=== PATIENT | male | born 1980 | race Hispanic/Latino ===

== ENCOUNTER 2020-07-08 15:28 | Emergency (ER) | payer OTHER ==
[~2020-07-08] VITALS: Ht 172.7 cm; Wt 79.4 kg
[2020-07-08] MEDS ORDERED: SODIUM CHLORIDE 0.9% INJ 50 ML BAG ONE (16:00)
[2020-07-08] MEDS ORDERED: IOPAMIDOL 370 MG/ML 200 ML INFUS..BTL INJ ONE (16:00)
[2020-07-08 16:13] LABS: BASOPHILS # (AUTO) 0.1 (0.0-0.1); BASOPHILS % 0.6 % (0.0-1.0); EOSINOPHILS # (AUTO) 0.1 (0.0-0.4); EOSINOPHILS % 1.4 % (0.0-6.0); HEMATOCRIT 45.7 % (38.2-49.6); HEMOGLOBIN 15.5 g/dL (14.0-18.0); LYMPHOCYTES # (AUTO) 1.8 (1.0-3.2); MEAN CORPUSCULAR HEMOGLOBIN 28.9 pg (28-32); MEAN CORPUSCULAR HGB CONC 33.9 g/dL (31-35); MEAN CORPUSCULAR VOLUME 85.1 fL (81-99); MONOCYTES # (AUTO) 0.7 (0.2-0.8); MONOCYTES % 7.9 % (4.4-11.3); NEUTROPHILS # (AUTO) 5.9 (2.1-6.9); NEUTROPHILS % 68.9 % (38.7-80.0); PLATELET COUNT 216 x10e3/uL (140-360); RED BLOOD COUNT 5.37 x10e6/uL (4.3-5.7); RED CELL DISTRIBUTION WIDTH 12.4 % (11.7-14.4)
--- NOTE | 2020-07-08 16:13 | Emergency Department Note ---
History of Present Illnes History of Present Illness Chief Complaint: Abdominal Complaints History of Present Illness This is a 40 year old male Chief Complaint Comment PATIENT IN FROM HOME WITH COMPLAINTS OF RIGHT LOWER ABDOMINAL PAIN RADIATING DOWN INTO GROIN; PATIENT DENIES FEVER, NAUSEA, VOMITING, OR DIARRHEA. Historian: Patient Arrival Mode: Car Children'S Service Worker Required: No Onset (how long ago): day(s) Location: RLQ Quality: sharp Radiation: Reports non-radiation Severity: mild Onset quality: sudden Duration (how long): day(s) Timing of current episode: sporadic Progression: unchanged Chronicity: new Context: Denies recent illness, Denies recent surgery Relieving factors: none Exacerbating factors: none Associated symptoms: Reports denies other symptoms Treatments prior to arrival: none Past Medical/Family History Physician Review I have reviewed the patient's past medical and family history. Any updates have been documented here. Past Medical History Recent Fever: No Clinical Suspicion of Infectio: No New/Unexplained Change in Ment: No Past Medical History: Hypothyroidism Other Surgery: LEFT KNEE SURGERY Social History Physically hurt or threatened: No Review of Systems Review of Systems Constitutional: Reports no symptoms EENTM: Reports no symptoms Cardiovascular: Reports no symptoms Respiratory: Reports no symptoms Gastrointestinal: Reports no symptoms, Reports abdominal pain (RLQ) Genitourinary: Reports no symptoms Musculoskeletal: Reports no symptoms Integumentary: Reports no symptoms Neurological: Reports no symptoms Psychological: Reports no symptoms Endocrine: Reports no symptoms Hematological/Lymphatic: Reports no symptoms Physical Exam Related Data Allergies: Coded Allergies: Penicillins (Verified Allergy, Severe, 07/08/20) Triage Vital Signs Vital Signs Date Time Temp Pulse Resp B/P (MAP) Pulse Ox O2 Delivery O2 Flow Rate FiO2 07/08/20 15:38 98.9 77 18 147/88 100 Room Air Vital signs reviewed: Yes Physical Exam CONSTITUTIONAL Constitutional: Present well-developed, Present well-nourished HENT HENT: Present normocephalic, Present atraumatic, Present oropharynx clear/moist, Present nose normal HENT L/R: Present left ext ear normal, Present right ext ear normal EYES Eyes: Reports PERRL, Reports conjunctivae normal NECK Neck: Present ROM normal PULMONARY Pulmonary: Present effort normal, Present breath sounds normal CARDIOVASCULAR Cardiovascular: Present regular rhythm, Present heart sounds normal, Present capillary refill normal, Present normal rate GASTROINTESTINAL Abdominal: Present soft, Present nontender, Present bowel sounds normal GENITOURINARY Genitourinary: Present exam deferred SKIN Skin: Present warm, Present dry MUSCULOSKELETAL Musculoskeletal: Present ROM normal NEUROLOGICAL Neurological: Present alert, Present oriented x 3, Present no gross motor or sensory deficits PSYCHOLOGICAL Psychological: Present mood/affect normal, Present judgement normal Results Laboratory Laboratory Laboratory Tests Test 07/08/20 16:01 Lab results reviewed: Yes Imaging Imaging results reviewed: Yes Assessment & Plan Medical Decision Making MDM 40 y.o M no reported PMH presents for RLQ pain. Exam benign, VSS, WNL. CT labs. eval for appendicitis vs constipation among others. CT and labs neg. Doubt emergent process. DC. Assessment & Plan Final Impression: (1) Abdominal pain Depart Disposition: HOME, SELF-CARE Last Vital Signs Date Time Temp Pulse Resp B/P (MAP) Pulse Ox O2 Delivery O2 Flow Rate FiO2 07/08/20 15:38 98.9 77 18 147/88 100 Room Air LLOYD RAMIREZ MD Jul 08, 2020 16:13
[2020-07-08 16:16] LABS: CLARITY,URINE CLEAR (CLEAR); COLOR,URINE YELLOW (YELLOW)
[2020-07-08 16:17] LABS: BILIRUBIN,URINE NEGATIVE (NEGATIVE); KETONES,URINE NEGATIVE (NEGATIVE); LEUKOCYTE ESTERASE ,URINE NEGATIVE (NEGATIVE); NITRITE,URINE NEGATIVE (NEGATIVE); PROTEIN,URINE DIPSTICK NEGATIVE (NEGATIVE); URINE UROBILINOGEN 0.2 mg/dL (0.2 - 1)
[2020-07-08 16:26] LABS: ALANINE AMINOTRANSFERASE 49 IU/L (0-55); ALBUMIN/GLOBULIN RATIO 1.4 (0.8-2.0); ALKALINE PHOSPHATASE 98 IU/L (40-150); BLOOD UREA NITROGEN 12 mg/dL (7-26); BUN/CREATININE RATIO 13 (6-25); CALCIUM 9.8 mg/dL (8.4-10.2); CARBON DIOXIDE 28 mmol/L (22-29); CHLORIDE 100 mmol/L (98-107); EST GLOMERULAR FILTRATION RATE > 60 ML/MIN (60-); GLUCOSE 98 mg/dL (74-118); LIPASE 19 U/L (8-78); SODIUM 141 mmol/L (136-145)
[2020-07-08 16:28] LABS: BACTERIA,URINE RARE /HPF; RBC,URINE 0-5 /HPF (0-5); WBC,URINE (MAN) 0-5 /HPF (0-5)
--- OUTSIDE RECORDS SUMMARY | 2020-07-08 16:40 | XMS REPORT | Continuity of Care Document ---
Author Author Franky [employer] AARONJack Tierney [employer] Address Unknown Phone Unavailable Care Team Providers Care Firearms Specialist Name Role Phone [employer] Unavailable Un available Problems Problem Status Onset Date Classification Date Reported Comments Source Acquired hypothyroidism Active Diagnosis 06/16/2017 [facility] Pure hypercholesterolemia Acti ve Diagnosis 1 08/16/2016 [facility] Numbness of left foot Active Problem 06/16/2017 [facility] Hypogonadism in male Active Problem 06/16/2017 [facility] Encounter to discuss test results Active Diagnosis 1 08/16/2016 [facility] Tobacco dependence Active Problem 06/16/2017 [facility] BMI 27.0-27.9,adult Active Problem 06/16/2017 [facility] Chest pain in adult Active Diagnosis 05/19/2017 [facility] Belching Active Diagnosis 05/19/2017 [facility] Hypogonadism male Active Diagnosis 08/21/2014 [facility] HLD (hyperlipidemia) Active Diagnosis 08/21/2014 [facility] Hypothyroidism Active Diagnosis 08/21/2014 [facility] Other follow-up examination Ac tive Diagnosis 0 08/21/2014 [facility] Encounter to discuss test results Active Diagnosis 0 08/21/2014 [facility] Change in Bowel Habits Active Diagnosis 07/31/2014 [facility] Routine general medical examination at [facility] Active Diag nosis 07/31/2014 [facility] Allergic rhinitis Active Diagnosis 03/25/2016 [facility] Epistaxis Active Diagnosis 03/25/2016 [facility] Encntr for general adult medical exam w/ o abnormal findings Active Diag nosis 10/08/2016 [facility] Medications Medication Details Route Status Patient Instructions Ordering Provider Order Date Source Levothyroxine Sodium 1 tablet on an empty stomach in the morning Orally Active 50 MCG Orally Once a day Yane r 06/14/2017 [facility] Crestor 1 tablet Orally Active 20 MG Orally Once a day Nenita 11/18/2016 [facility] Levothyroxine Sodium 1 tablet Orally Active 25 MCG Orally once a day Skinny 05/13/2015 [facility] Levothyroxine Sodium 1 tablet Orally Active 25 MCG Orally once a day Nenita 05/13/2015 [facility] Levothyroxine Sodium 1 tablet Orally Active 25 MCG Orally once a day Nenita [facility] NO OTC meds taken Unknown In Vitro Active In Vitro Ghebranious [facility] Allergies, Adverse Reactions, Alerts Substance Category Reaction Severity Reaction type Status Date Reported Comments Source penicillin Adverse Reaction Info Not Available Adverse Reaction Active 06/14/2017 [facility] Immunizations No Data Provided for This Section Results No Data Provided for This Section Pathology Reports No Data Provided for This Section Diagnostic Reports No Data Provided for This Section Consultation Notes No Data Provided for This Section Discharge Summaries No Data Provided for This Section History and Physicals No Data Provided for This Section Vital Signs Vital Sign Value Date Comments Source Weight 189 06/14/2017 [facility] Height 67 1 08/14/2016 [facility] Heart Rate 68 06/14/2017 [facility] Diastolic (mm Hg) 76 06/14/2017 [facility] Systolic (mm Hg) 134 06/14/2017 [facility] Weight 189 05/17/2017 [facility] Height 67 1 [facility] Heart Rate 59 05/17/2017 [facility] Diastolic (mm Hg) 76 05/17/2017 [facility] Systolic (mm Hg) 120 05/17/2017 [facility] Weight 182 10/06/2016 [facility] Height 67 0 10/06/2016 [facility] Heart Rate 62 10/06/2016 [facility] Diastolic (mm Hg) 76 10/06/2016 [facility] Systolic (mm Hg) 124 10/06/2016 [facility] Weight 179 03/23/2016 [facility] Height 67 0 03/23/2016 [facility] Heart Rate 72 03/23/2016 [facility] Diastolic (mm Hg) 78 03/23/2016 [facility] Systolic (mm Hg) 122 03/23/2016 [facility] Weight 179 01/18/2016 [facility] Height 67 0 01/18/2016 [facility] Heart Rate 58 01/18/2016 [facility] Diastolic (mm Hg) 70 01/18/2016 [facility] Systolic (mm Hg) 120 01/18/2016 [facility] Weight 173 06/04/2015 [facility] Height 67 1 [facility] Heart Rate 80 06/04/2015 [facility] Diastolic (mm Hg) 80 06/04/2015 [facility] Systolic (mm Hg) 120 06/04/2015 [facility] Weight 174 08/19/2014 [facility] Height 67 0 08/19/2014 [facility] Heart Rate 94 08/19/2014 [facility] Diastolic (mm Hg) 68 08/19/2014 [facility] Systolic (mm Hg) 122 08/19/2014 [facility] Weight 175 07/16/2014 [facility] Height 67 1 09/16/2013 [facility] Heart Rate 78 07/16/2014 [facility] Diastolic (mm Hg) 64 07/16/2014 [facility] Systolic (mm Hg) 114 07/16/2014 [facility] Encounters Location Location Details Encounter Type Encounter Number Reason For Visit Attending Provider ADM Date DC Date Status Source [facility] PHYSICAL [id number] 07/16/2014 07/16/2014 [facility] PHYSICAL [id number] 07/16/2014 07/16/2014 [facility] PHYSICAL [id number] 07/16/2014 07/16/2014 [facility] PHYSICAL [id number] 07/16/2014 07/16/2014 [facility] PHYSICAL [id number] 07/16/2014 07/16/2014 [facility] PHYSICAL [id number] 07/16/2014 07/16/2014 [facility] PHYSICAL [id number] 07/16/2014 07/16/2014 [facility] PHYSICAL [id number] 07/16/2014 07/16/2014 [facility] PHYSICAL [id number] 07/16/2014 07/16/2014 [facility] PHYSICAL [id number] 07/16/2014 07/16/2014 [facility] LAB RESULTS [id number] 08/19/2014 08/19/2014 [facility] LAB RESULTS [id number] 08/19/2014 08/19/2014 [facility] LAB RESULTS [id number] 08/19/2014 08/19/2014 [facility] LAB RESULTS [id number] 08/19/2014 08/19/2014 [facility] LAB RESULTS [id number] 08/19/2014 08/19/2014 [facility] LAB RESULTS [id number] 08/19/2014 08/19/2014 [facility] LAB RESULTS [id number] 08/19/2014 08/19/2014 [facility] LAB RESULTS [id number] 08/19/2014 08/19/2014 [facility] LAB RESULTS [id number] 08/19/2014 08/19/2014 [facility] Refill [id number] 05/14/2015 05/14/2015 [facility] Refill [id number] 05/14/2015 05/14/2015 [facility] Refill [id number] 05/14/2015 05/14/2015 [facility] Refill [id number] 05/14/2015 05/14/2015 [facility] Refill [id number] 05/14/2015 05/14/2015 [facility] Refill [id number] 05/14/2015 05/14/2015 [facility] Refill [id number] 05/14/2015 05/14/2015 [facility] Refill [id number] 05/14/2015 05/14/2015 [facility] med refill and joint pain [id number] 06/04/2015 06/04/2015 [facility] med refill and joint pain [id number] 06/04/2015 06/04/2015 [facility] med refill and joint pain [id number] 06/04/2015 06/04/2015 [facility] med refill and joint pain [id number] 06/04/2015 06/04/2015 [facility] med refill and joint pain [id number] 06/04/2015 06/04/2015 [facility] med refill and joint pain [id number] 06/04/2015 06/04/2015 [facility] med refill and joint pain [id number] 06/04/2015 06/04/2015 [facility] med refill and joint pain [id number] 06/04/2015 06/04/2015 [facility] Unknown [id number] 06/12/2015 06/12/2015 [facility] Unknown [id number] 06/12/2015 06/12/2015 [facility] Unknown [id number] 06/12/2015 06/12/2015 [facility] Unknown [id number] 06/12/2015 06/12/2015 [facility] Unknown [id number] 06/12/2015 06/12/2015 [facility] Unknown [id number] 06/12/2015 06/12/2015 [facility] Unknown [id number] 06/12/2015 06/12/2015 [facility] Unknown [id number] 06/12/2015 06/12/2015 [facility] Unknown [id number] 10/16/2015 10/16/2015 [facility] Unknown [id number] 10/16/2015 10/16/2015 [facility] Unknown [id number] 10/16/2015 10/16/2015 [facility] Unknown [id number] 10/16/2015 10/16/2015 [facility] Unknown [id number] 10/16/2015 10/16/2015 [facility] Unknown [id number] 10/16/2015 10/16/2015 [facility] MEDICATION FOLLOW UP [id number] 01/18/2016 01/18/2016 [facility] MEDICATION FOLLOW UP [id number] 01/18/2016 01/18/2016 [facility] MEDICATION FOLLOW UP [id number] 01/18/2016 01/18/2016 [facility] MEDICATION FOLLOW UP [id number] 01/18/2016 01/18/2016 [facility] MEDICATION FOLLOW UP [id number] 01/18/2016 01/18/2016 [facility] NOSE BLEED [id number] 03/23/2016 03/23/2016 [facility] NOSE BLEED [id number] 03/23/2016 03/23/2016 [facility] NOSE BLEED [id number] 03/23/2016 03/23/2016 [facility] NOSE BLEED [id number] 03/23/2016 03/23/2016 [facility] Unknown [id number] 04/12/2016 04/12/2016 [facility] Unknown [id number] 04/12/2016 04/12/2016 [facility] Unknown [id number] 04/12/2016 04/12/2016 [facility] physical exam [id number] 10/06/2016 10/06/2016 [facility] physical exam [id number] 10/06/2016 10/06/2016 [facility] labs results [id number] 10/12/2016 10/12/2016 [facility] Procedures No Data Provided for This Section Assessment and Plan No Data Provided for This Section Plan of Care No Data Provided for This Section Social History Social History Date Source Social History ElementQualifiersDate Rep orted Occupation: . works for [employer] October 06, 2016 hobbies/sports . soccer October 06, 2016 Last Colonoscopy: . never October 06, 2016 children . 2 October 06, 2016 Flu Vaccine: . no October 06, 2016 Tobacco Use: . Are you a: light tobacco smoker, How many packs per day? 5-6 cig a week October 06, 2016 Do you have pets? . Status: Yes, Type: dog(s) October 06, 2016 Ethnicity . Status , Is tajik your prim марина language? Yes October 06, 2016 Marital Status: . [place] October 06, 2016 Caffeine intake? . Status: Yes, What type: Coffee, Soft Drinks, 1 cup a day October 06, 2016 Do you exercise? . Answer: Yes, Type: running October 06, 2016 Depression Screening: . negative October 06, 2016 Last Bone Density: . never October 06, 2016 Do you drink alcohol? . Status: Yes, Type: Beer, Liquor, How often? Socially October 06, 2016 10/06/2016 [facility] Family History Value Date S ource QualifierDescriptionCommentDate Reported Maternal Grandmother Comment not available October 06, 2016 Paternal Grandmother Comment not available October 06, 2016 Siblings Comment not available October 06, 2016 Maternal Grandfather Comment not available October 06, 2016 Children Comment not available October 06, 2016 Father alive Comment not available October 06, 2016 Paternal Grandfather Comment not available October 06, 2016 Mother alive Comment not available October 06, 2016 Other: Comment not available October 06, 2016 10/08/2016 [facility] QualifierDescriptionCommentDate Reported Maternal Grandmother Comment not available Mar 23, 2016 Paternal Grandmother Comment not available Mar 23, 2016 Siblings Comment not available Mar 23, 2016 Maternal Grandfather Comment not available Mar 23, 2016 Children Comment not available Mar 23, 2016 Father alive Comment not available Mar 23, 2016 Paternal Grandfather Comment not available Mar 23, 2016 Mother alive Comment not available Mar 23, 2016 Other: Comment not available Mar 23, 2016 03/25/2016 [facility] QualifierDescriptionCommentDate Reported Maternal Grandmother Comment not available January 18, 2016 Paternal Grandmother Comment not available January 18, 2016 Siblings Comment not available January 18, 2016 Maternal Grandfather Comment not available January 18, 2016 Children Comment not available January 18, 2016 Father alive Comment not available January 18, 2016 Paternal Grandfather Comment not available January 18, 2016 Mother alive Comment not available January 18, 2016 Other: Comment not available January 18, 2016 01/20/2016 [facility] QualifierDescriptionCommentDate Reported Mother alive Comment not available Aug 19, 2014 Father alive Comment not available Aug 19, 2014 08/21/2014 [facility] Advance Directives No Data Provided for This Section Functional Status No Data Provided for This Section
--- NOTE | 2020-07-08 17:09 | Diagnostic Imaging Report ---
EXAM: CT Abdomen and Pelvis WITH contrast INDICATION: ^RLQ pain COMPARISON: None. TECHNIQUE: Abdomen and pelvis were scanned utilizing a multidetector helical scanner from the lung base to the pubic symphysis after administration of IV contrast. Coronal and sagittal reformations were obtained. Routine protocol was performed. Scan was performed when during portal venous phase. IV CONTRAST: 100 mL of Isovue 370 ORAL CONTRAST: None COMPLICATIONS: None RADIATION DOSE: Total DLP: 262 mGy*cm Estimated effective dose: (DLP x 0.015 x size factor) mSv CTDIvol has been reviewed. It is below the limits set by the Radiation Protocol Committee (RPC). Dose modulation, iterative reconstruction, and/or weight based adjustment of the mA/kV was utilized to reduce the radiation dose to as low as reasonably achievable. FINDINGS: LINES and TUBES: None. LOWER THORAX: Unremarkable HEPATOBILIARY: There is a small 2 cm cyst in the left hepatic dome (series 2 image 7). No biliary ductal dilation. GALLBLADDER: No radio-opaque stones or sludge. No wall thickening. SPLEEN: No splenomegaly. PANCREAS: No focal masses or ductal dilatation. ADRENALS: No adrenal nodules KIDNEYS/URETERS: Kidneys enhance symmetrically. No hydronephrosis. No cystic or solid mass lesions. No stones. GI TRACT: No abnormal distention, wall thickening, or evidence of bowel obstruction. Appendix is normal. PELVIC ORGANS/BLADDER: Unremarkable. LYMPH NODES: No lymphadenopathy. VESSELS: Unremarkable. PERITONEUM / RETROPERITONEUM: No free air or fluid. BONES: Unremarkable. SOFT TISSUES: Unremarkable. IMPRESSION: No acute abdominopelvic abnormality. Normal appendix. Signed by: Karen Golden MD on 07/08/2020 5:06 PM
[2020-07-08 17:49] VITALS: BP 129/82
== END 2020-07-08 17:52 | disposition home or self-care (01) ==
LOC: ER 15:43
DX: R10.31 Right lower quadrant pain (principal); E03.9 Hypothyroidism, unspecified
CPT/HCPCS: 36415; 74177; 80053; 81001; 83690; 85025; 99284; Q9967